=== PATIENT | female | born 1980 | race Caucasian/White ===

== ENCOUNTER 2021-04-14 21:10 | Emergency (ER) | payer OTHER ==
[~2021-04-14] VITALS: Ht 162.6 cm; Wt 77.1 kg
[2021-04-14] MEDS ORDERED: BENZTROPINE MES1 MG PO (21:37)
[2021-04-14] MEDS ORDERED: SPIRONOLACTONE50 MG PO (21:37)
[2021-04-14] MEDS ORDERED: HYDROXYZINE PAM50 MG PO (21:37)
[2021-04-14] MEDS ORDERED: SEROQUEL300 MG PO ×2 (21:38→23:45)
[2021-04-14] MEDS ORDERED: SEROQUEL200 MG PO ×2 (21:38→23:45)
[2021-04-14] MEDS ORDERED: HALOPERIDOL 5 MG5 MG PO ×2 (21:38→23:45)
[2021-04-14] MEDS ORDERED: LIPITOR40 MG PO (21:39)
[2021-04-14] MEDS ORDERED: PROAIR HFA8.5 GM INH (23:45)
[2021-04-14] MEDS ORDERED: REQUIP 1 MG TABL1 M1 PO (23:45)
[2021-04-14 23:55] VITALS: BP 133/91
== END 2021-04-14 23:55 | disposition home or self-care (01) ==
LOC: M.ERS 21:10
DX: G43.909 Migraine, unspecified, not intractable, without status migrainosus (principal); I10 Essential (primary) hypertension; E78.5 Hyperlipidemia, unspecified; Z91.040 Latex allergy status; Z91.09 Other allergy status, other than to drugs and biological substances; Z79.899 Other long term (current) drug therapy

== ENCOUNTER 2021-04-19 22:04 | Emergency (ER) | payer OTHER ==
[~2021-04-19] VITALS: Ht 162.6 cm; Wt 81.7 kg
[~2021-04-19 22:04] MED LIST: BENZTROPINE MES1 MG PO; HALOPERIDOL 5 MG5 MG PO; HYDROXYZINE PAM50 MG PO; LIPITOR40 MG PO; PROAIR HFA8.5 GM INH; REQUIP 1 MG TABL1 M1 PO; SEROQUEL200 MG PO; SEROQUEL300 MG PO; SPIRONOLACTONE50 MG PO
[2021-04-20] MEDS ORDERED: COMPAZINE10 M2 PO (00:36)
[2021-04-20 01:00] VITALS: BP 112/77
== END 2021-04-20 01:01 | disposition home or self-care (01) ==
LOC: M.ERS 22:04
DX: G43.909 Migraine, unspecified, not intractable, without status migrainosus (principal); I10 Essential (primary) hypertension; E78.5 Hyperlipidemia, unspecified; Z91.040 Latex allergy status; Z88.8 Allergy status to other drugs, medicaments and biological substances; Z91.09 Other allergy status, other than to drugs and biological substances; Z79.899 Other long term (current) drug therapy

== ENCOUNTER 2021-04-24 17:30 | Emergency (ER) | payer OTHER ==
[~2021-04-24] VITALS: Ht 162.6 cm; Wt 81.7 kg
[~2021-04-24 17:30] MED LIST changes: +COMPAZINE10 M2 PO
[2021-04-24 17:46] LABS: URINE BILIRUBIN NEGATIVE (Negative); URINE BLOOD NEGATIVE (Negative); URINE CLARITY CLEAR; URINE COLOR YELLOW; URINE GLUCOSE-RANDOM NEGATIVE (Negative); URINE KETONES NEGATIVE (Negative); URINE LEUKOCYTES NEGATIVE (Negative); URINE NITRITE NEGATIVE (Negative); URINE PROTEIN NEGATIVE (Negative); URINE UROBILINOGEN 0.2 E.U./dl (0.2-1.0)
[2021-04-24 17:58] LABS: ABSOLUTE EOSINOPHILS 0.1 thou/uL (0.0-0.7); ABSOLUTE LYMPHOCYTES 3.3 thou/uL (0.8-5.3); ABSOLUTE MONOCYTES 0.4 thou/uL (0.0-1.2); ABSOLUTE NEUTROPHILS 5.4 thou/uL (1.6-8.1); BASOPHILS 0.5 %; EOSINOPHILS 1.3 %; HEMATOCRIT 39.6 % (37.0-47.0); HEMOGLOBIN 13.8 gm/dL (12.0-15.0); LYMPHOCYTES 35.8 %; MCV 97.1 fL (80.0-100.0); MONOCYTES 4.8 %; MPV 7.3 fl. (7.2-11.1); NUCLEATED RBCS 0 /100WBC; PLATELET COUNT* 327 thou/uL (150-400); POLYS 57.6 %; RBC 4.08 mil/uL (4.20-5.00); RDW-CV 13.8 % (10.5-14.5); WBC 9.3 thou/uL (4.0-11.0)
[2021-04-24 18:12] LABS: POTASSIUM 3.2 mmol/L (3.5-5.1)
[2021-04-24 18:23] LABS: TOTAL BILIRUBIN 0.3 mg/dL (<0.1-1.0); TOTAL PROTEIN 7.3 g/dL (6.4-8.2)
[2021-04-24 18:35] LABS: AMP/METHAMP Negative (Negative); BARBITURATES POSITIVE (Negative); BENZODIAZEPINES Negative (Negative); COCAINE Negative (Negative); METHADONE Negative (Negative); OPIATES Negative (Negative); PCP Negative (Negative); THC POSITIVE (Negative)
[2021-04-24 19:54] VITALS: BP 144/83
[2021-04-25] MEDS ORDERED: TIZANIDINE HCL4 M1 PO (07:37)
== END 2021-04-24 19:54 | disposition home or self-care (01) ==
LOC: M.ERS 17:30
PROVIDERS: Physician Assistant
DX: R10.11 Right upper quadrant pain (principal); R11.2 Nausea with vomiting, unspecified; I10 Essential (primary) hypertension; G43.909 Migraine, unspecified, not intractable, without status migrainosus; E78.5 Hyperlipidemia, unspecified; Z91.040 Latex allergy status; Z88.8 Allergy status to other drugs, medicaments and biological substances; Z79.899 Other long term (current) drug therapy

== ENCOUNTER 2021-04-25 07:20 | Emergency (ER) | payer OTHER ==
[~2021-04-25] VITALS: Ht 162.6 cm; Wt 81.7 kg
[2021-04-25] MEDS ORDERED: TIZANIDINE HCL4 M1 PO (07:37)
[2021-04-25 11:22] LABS: ABSOLUTE EOSINOPHILS 0.1 thou/uL (0.0-0.7); ABSOLUTE LYMPHOCYTES 1.8 thou/uL (0.8-5.3); ABSOLUTE MONOCYTES 0.4 thou/uL (0.0-1.2); ABSOLUTE NEUTROPHILS 5.6 thou/uL (1.6-8.1); BASOPHILS 0.6 %; EOSINOPHILS 0.8 %; HEMATOCRIT 40.9 % (37.0-47.0); HEMOGLOBIN 14.4 gm/dL (12.0-15.0); LYMPHOCYTES 22.6 %; MCHC 35.1 g/dL (28.0-37.0); MONOCYTES 4.9 %; MPV 7.3 fl. (7.2-11.1); NUCLEATED RBCS 0 /100WBC; PLATELET COUNT* 303 thou/uL (150-400); POLYS 71.1 %; RBC 4.22 mil/uL (4.20-5.00); RDW-CV 14.2 % (10.5-14.5); WBC 7.9 thou/uL (4.0-11.0)
[2021-04-25 11:33] LABS: CALCIUM 9.1 mg/dL (8.5-10.1); POTASSIUM 3.7 mmol/L (3.5-5.1)
[2021-04-25 11:45] LABS: ALBUMIN 4.4 g/dL (3.4-5.0); MAGNESIUM 1.5 mg/dL (1.8-2.4); TOTAL BILIRUBIN 0.3 mg/dL (<0.1-1.0); TOTAL PROTEIN 7.8 g/dL (6.4-8.2)
[2021-04-25 11:49] LABS: URINE BILIRUBIN NEGATIVE (Negative); URINE BLOOD NEGATIVE (Negative); URINE CLARITY CLEAR; URINE COLOR YELLOW; URINE GLUCOSE-RANDOM NEGATIVE (Negative); URINE KETONES NEGATIVE (Negative); URINE LEUKOCYTES-REFLEX NEGATIVE (Negative); URINE NITRITE-REFLEX NEGATIVE (Negative); URINE PROTEIN NEGATIVE (Negative); URINE SPECIFIC GRAVITY <= 1.005 (1.005-1.030); URINE UROBILINOGEN 0.2 E.U./dl (0.2-1.0)
[2021-04-25 14:02] VITALS: BP 121/75
== END 2021-04-25 14:03 | disposition home or self-care (01) ==
LOC: M.ERS 07:20
PROVIDERS: Nurse Practitioner Family
DX: R10.11 Right upper quadrant pain (principal); R11.2 Nausea with vomiting, unspecified; G43.909 Migraine, unspecified, not intractable, without status migrainosus; I10 Essential (primary) hypertension; E78.5 Hyperlipidemia, unspecified; Z90.49 Acquired absence of other specified parts of digestive tract; Z91.040 Latex allergy status; Z88.8 Allergy status to other drugs, medicaments and biological substances; Z98.890 Other specified postprocedural states